=== PATIENT | female | born 1940 | race Caucasian/White ===

== ENCOUNTER → 2019-12-28 | Outpatient (CLI) | payer MEDICARE, BC | END | disposition home or self-care (01) | LOC: CVU 14:57 | PROVIDERS: ATTEND Internal Medicine Cardiovascular Disease | DX: I08.3 Combined rheumatic disorders of mitral, aortic and tricuspid valves (principal); I42.9 Cardiomyopathy, unspecified; I25.2 Old myocardial infarction; I50.9 Heart failure, unspecified | CPT/HCPCS: C8929; Q9957 ==

== ENCOUNTER 2020-02-06 01:44 | Inpatient (IN) | payer MEDICARE, BC ==
[~2020-02-06] VITALS: Ht 154.9 cm; Wt 92.0 kg
--- NOTE | 2020-02-06 01:46 | NUR ---
Sylvia Leung and BHANU,
[2020-02-06] MEDS ORDERED: PROPOFOL 100 ML IV ONE (01:53)
[2020-02-06] MEDS ORDERED: HEPARIN 25,000 UNITS/250ML PMX 250 ML ONE (02:09)
[2020-02-06] MEDS ORDERED: HEPARIN 5,000 UNITS/ML, 1ML ONE (02:09)
[2020-02-06 02:24] LABS: MEAN CORPUSCULAR HEMOGLOBIN 30.3 pg (27.0-34.8); MEAN CORPUSCULAR HGB CONC 33.6 g/dL (32.4-35.8); MEAN CORPUSCULAR VOLUME 90.3 fL (80-100); MEAN PLATELET VOLUME 8.7 fL (7.4-10.4); PLATELET COUNT 307 x10^3/uL (130-400); RED BLOOD COUNT 4.58 x10^6/uL (3.82-5.3); RED CELL DISTRIBUTION WIDTH 14.8 % (9.6-15.2)
--- NOTE | 2020-02-06 02:28 | NUR ---
MAI CHICAS STARTED AT THIS TIME. MD AT BEDSIDE FOR CENTRAL LINE PLACEMENT.
[2020-02-06 02:30] LABS: INTERNATIONAL NORMALIZED RATIO 1.02 (0.93-1.1); PROTHROMBIN TIME 10.8 Seconds (9.6-11.5)
[2020-02-06] MEDS ORDERED: PROPOFOL 100 ML IV PRN (02:30)
[2020-02-06] MEDS ORDERED: HEPARIN 25,000 UNITS/250ML PMX 250 ML IV PRN (02:30)
[2020-02-06] MEDS ORDERED: AMIODARONE 450 MG in DEXTROSE 5% 241 ML IV PRN (02:30)
[2020-02-06] MEDS ORDERED: NOREPINEPHRINE 8 MG in SODIUM CHLORIDE 0.9% 242 ML IV PRN (02:30)
[2020-02-06] MEDS ORDERED: HEPARIN 5,000 UNITS/ML, 1ML IV ONE (02:30)
[2020-02-06 02:31] LABS: ALANINE AMINOTRANSFERASE 124 U/L (12-78); ALBUMIN 3.3 g/dL (3.4-5.0); ANION GAP 11 mmol/L (5-15); CALCIUM 8.2 mg/dL (8.5-10.1); CHLORIDE 109 mmol/L (98-107); CREATININE 1.26 mg/dL (0.55-1.02)
[2020-02-06 02:35] LABS: ALKALINE PHOSPHATASE 129 U/L (45-117); BILIRUBIN,TOTAL 0.7 mg/dL (0.2-1.0); TOTAL PROTEIN 6.8 g/dL (6.4-8.2)
--- NOTE | 2020-02-06 02:36 | NUR ---
PT WAS BIB [facility] D/O CARDIAC ARREST AT HOME WITH DAUGHTER PRESENT, DAUGHTER IS AN RN CPR STARTED WITH RETURN OF PULSES AFTER EPI X 3 AND SHOCK X 3 , PT INTUBATED ETT 7.5 40% FIO2, PEEP 5. TV 400, RR 17, 24 AT LIP
[2020-02-06 02:37] LABS: TROPONIN I 0.275 ng/mL (0.000-0.045)
[2020-02-06 02:46] LABS: BASOPHILS # (AUTO) 0.04 x10^3/uL (0-0.1); BASOPHILS % (AUTO) 0 % (0-1); EOSINOPHILS # (AUTO) 0.02 x10^3/uL (0-0.4); EOSINOPHILS % (AUTO) 0 % (1-7); LYMPHOCYTES # (AUTO) 2.91 x10^3/uL (1-3.4); LYMPHOCYTES % (AUTO) 14 % (22-44); MD SCAN; MONOCYTES # (AUTO) 1.89 x10^3/uL (0.2-0.8); MONOCYTES % (AUTO) 9 % (2-9); NEUTROPHILS # (AUTO) 16.23 x10^3/uL (1.8-6.8); NEUTROPHILS % (AUTO) 77 % (42-75)
[2020-02-06 02:52] VITALS: BP 130/68
--- NOTE | 2020-02-06 03:12 | NUR ---
NAD AT THIS TIME, TOLERATING ALL INTERVENTIONS VSS
--- NOTE | 2020-02-06 03:45 | NUR ---
DR ENGEL AT AND PLACED ART LINE TO RIGHT GROIN, AWAITING ADMIT ORDERS
[2020-02-06] MEDS ORDERED: SODIUM PHOSPHATE 20 MMOL in SODIUM CHLORIDE 0.9% 250 ML IVPB PRN (03:51)
[2020-02-06] MEDS ORDERED: MAGNESIUM SULFATE/D5W 100 ML IVPB PRN (04:00)
[2020-02-06] MEDS ORDERED: FAMOTIDINE 20 MG/2 ML IVPush SCH (04:00)
[2020-02-06] MEDS ORDERED: ARTIFICIAL TEARS OINT 3.5 GM EACHEYE SCH (04:00)
[2020-02-06] MEDS ORDERED: CALCIUM CHLORIDE 13.6 MEQ in SODIUM CHLORIDE 0.9% 100 ML IVPB PRN (04:00)
--- NOTE | 2020-02-06 04:26 | NUR ---
REPORT TO JOSE GUADALUPE PT TO ICU WITH THIS RN RT AND TECH, PT IN NAD
[2020-02-06] MEDS ORDERED: SODIUM CHLORIDE 0.9% 1,000ML IVBOLUS ONE (04:30)
[2020-02-06] MEDS: AMPICILLIN/SULBACTAM 3 GM in SODIUM CHLORIDE 0.9% 100 ML IV SCH ×4 (05:05→22:08)
[2020-02-06] MEDS: BUSPIRONE 10 MG TABLET NG SCH ×3 (05:07→20:20)
[2020-02-06] MEDS: NOREPINEPHRINE 8 MG in SODIUM CHLORIDE 0.9% 242 ML IV PRN ×3 (05:08→18:22)
[2020-02-06] MEDS ORDERED: REGULAR INSULIN 100 UNITS in SODIUM CHLORIDE 0.9% 99 ML IV PRN (05:30)
[2020-02-06] MEDS: VASOPRESSIN 20 UNIT in SODIUM CHLORIDE 0.9% 99 ML IV PRN (06:42)
[2020-02-06 06:44] LABS: ANION GAP 12 mmol/L (5-15); CALCIUM 8.1 mg/dL (8.5-10.1); CHLORIDE 110 mmol/L (98-107); CREATININE 1.09 mg/dL (0.55-1.02)
[2020-02-06] MEDS: KSCALE TO 4.0 IV SCH ×4 (07:00→22:00)
[2020-02-06] MEDS ORDERED: POTASSIUM CHLORIDE PMX 100 ML IV ONE ×5 (07:00→22:30)
[2020-02-06] MEDS ORDERED: VECURONIUM 10 MG IVPush ONE ×2 (08:30→15:00)
[2020-02-06] MEDS ORDERED: ATROPINE SYRINGE 0.1 MG/ML, 10ML ONE (08:54)
[2020-02-06] MEDS ORDERED: ATROPINE SYRINGE 0.1 MG/ML, 10ML IVPush ONE (09:00)
[2020-02-06] MEDS: PROPOFOL 100 ML IV PRN ×3 (09:22→18:22)
[2020-02-06 09:36] LABS: FIO2 60 %
[2020-02-06] MEDS ORDERED: EPINEPHRINE 5 MG in SODIUM CHLORIDE 0.9% 245 ML IV PRN (10:30)
[2020-02-06] MEDS: LEVOTHYROXINE 100 MCG INJ IVPush SCH (11:01)
[2020-02-06] MEDS: FENTANYL PF 1,000 MCG in SODIUM CHLORIDE 0.9% 80 ML IV PRN (11:07)
[2020-02-06] MEDS: ARTIFICIAL TEARS OINT 3.5 GM EACHEYE SCH ×2 (12:51→20:20)
[2020-02-06] MEDS ORDERED: SODIUM BICARBONATE 1 MEQ/ML, 50ML VIAL IVPush ONE (15:00)
[2020-02-06] MEDS ORDERED: AMIO400T5 PO (17:23)
[2020-02-06] MEDS ORDERED: ASPI-496 PO (17:23)
[2020-02-06] MEDS ORDERED: SPIR25TA5 PO (17:23)
[2020-02-06] MEDS ORDERED: METO25TA35 PO (17:23)
[2020-02-06] MEDS ORDERED: ATOR20TA PO (17:23)
[2020-02-06] MEDS ORDERED: LEVO112T2 PO (17:23)
[2020-02-06] MEDS ORDERED: LISI2.5T PO (17:23)
[2020-02-06] MEDS ORDERED: FURO20TA3 PO (17:23)
[2020-02-06] MEDS ORDERED: MAGNESIUM SULFATE 1 GM in SODIUM CHLORIDE 0.9% 50 ML IV ONE (19:00)
[2020-02-07] MEDS: PROPOFOL 100 ML IV PRN ×7 (00:18→21:43)
[2020-02-07] MEDS: NOREPINEPHRINE 8 MG in SODIUM CHLORIDE 0.9% 242 ML IV PRN ×2 (00:18→05:26)
[2020-02-07] MEDS: KSCALE TO 4.0 IV SCH ×6 (02:00→22:00)
[2020-02-07] MEDS ORDERED: POTASSIUM CHLORIDE PMX 100 ML IV ONE (02:30)
[2020-02-07] MEDS: ARTIFICIAL TEARS OINT 3.5 GM EACHEYE SCH ×3 (04:32→20:33)
[2020-02-07] MEDS: AMPICILLIN/SULBACTAM 3 GM in SODIUM CHLORIDE 0.9% 100 ML IV SCH ×4 (04:32→22:08)
[2020-02-07] MEDS: BUSPIRONE 10 MG TABLET NG SCH ×3 (04:32→20:33)
[2020-02-07 04:47] LABS: BASOPHILS # (AUTO) 0.01 x10^3/uL (0-0.1); BASOPHILS % (AUTO) 0 % (0-1); EOSINOPHILS % (AUTO) 0 % (1-7); LYMPHOCYTES # (AUTO) 1.22 x10^3/uL (1-3.4); LYMPHOCYTES % (AUTO) 9 % (22-44); MD NO; MEAN CORPUSCULAR HEMOGLOBIN 29.9 pg (27.0-34.8); MEAN CORPUSCULAR VOLUME 90.7 fL (80-100); MEAN PLATELET VOLUME 8.7 fL (7.4-10.4); MONOCYTES # (AUTO) 0.59 x10^3/uL (0.2-0.8); MONOCYTES % (AUTO) 5 % (2-9); NEUTROPHILS # (AUTO) 11.39 x10^3/uL (1.8-6.8); NEUTROPHILS % (AUTO) 86 % (42-75); PLATELET COUNT 257 x10^3/uL (130-400); RED BLOOD COUNT 4.56 x10^6/uL (3.82-5.3)
[2020-02-07 04:59] LABS: ALANINE AMINOTRANSFERASE 93 U/L (12-78); ALBUMIN 2.7 g/dL (3.4-5.0); ANION GAP 8 mmol/L (5-15); CHLORIDE 115 mmol/L (98-107); CREATININE 0.63 mg/dL (0.55-1.02)
[2020-02-07 05:01] LABS: ALKALINE PHOSPHATASE 83 U/L (45-117); BILIRUBIN,TOTAL 0.7 mg/dL (0.2-1.0)
[2020-02-07] MEDS: FAMOTIDINE 20 MG/2 ML IVPush SCH (05:12)
[2020-02-07] MEDS: FENTANYL PF 1,000 MCG in SODIUM CHLORIDE 0.9% 80 ML IV PRN (05:14)
[2020-02-07] MEDS: LEVOTHYROXINE 100 MCG INJ IVPush SCH (08:02)
[2020-02-07] MEDS ORDERED: NOREPINEPHRINE 1 MG/ML, 4ML ONE (13:16)
[2020-02-07] MEDS: NOREPINEPHRINE 32 MG in SODIUM CHLORIDE 0.9% 218 ML IV PRN ×2 (13:37→20:34)
[2020-02-07] MEDS ORDERED: SODIUM CHLORIDE 0.9% 1,000 ML IV SCH ×2 (16:00→16:30)
[2020-02-07] MEDS: VASOPRESSIN 20 UNIT in SODIUM CHLORIDE 0.9% 99 ML IV PRN ×2 (16:27→23:05)
[2020-02-07] MEDS ORDERED: SODIUM BICARBONATE 1 MEQ/ML, 50ML VIAL ONE (21:07)
[2020-02-07] MEDS ORDERED: SODIUM BICARB 8.4%, 50ML SYRINGE ONE (21:07)
[2020-02-07] MEDS ORDERED: SODIUM BICARB 8.4%, 50ML SYRINGE IVPush ONE (21:30)
[2020-02-08] MEDS ORDERED: SODIUM POLYSTYRENE SULFONATE ORAL SUSP NG ONE
[2020-02-08] MEDS ORDERED: SODIUM BICARB 8.4%, 50ML SYRINGE IVPush ONE
[2020-02-08] MEDS ORDERED: SODIUM BICARBONATE 8.4% 150 MEQ in DEXTROSE 5% 1,000 ML IV SCH
[2020-02-08] MEDS: PROPOFOL 100 ML IV PRN ×2 (01:28→06:11)
[2020-02-08] MEDS: FENTANYL PF 1,000 MCG in SODIUM CHLORIDE 0.9% 80 ML IV PRN (01:47)
[2020-02-08] MEDS: KSCALE TO 4.0 IV SCH ×2 (02:00→06:00)
[2020-02-08 02:19] LABS: ANION GAP 19 mmol/L (5-15); CALCIUM 6.8 mg/dL (8.5-10.1); CHLORIDE 113 mmol/L (98-107); CREATININE 1.46 mg/dL (0.55-1.02)
[2020-02-08] MEDS: NOREPINEPHRINE 32 MG in SODIUM CHLORIDE 0.9% 218 ML IV PRN (03:41)
[2020-02-08] MEDS: EPINEPHRINE 5 MG in SODIUM CHLORIDE 0.9% 245 ML IV PRN ×2 (03:43→05:35)
[2020-02-08] MEDS: AMPICILLIN/SULBACTAM 3 GM in SODIUM CHLORIDE 0.9% 100 ML IV SCH (04:23)
[2020-02-08] MEDS: BUSPIRONE 10 MG TABLET NG SCH (04:23)
[2020-02-08] MEDS: FAMOTIDINE 20 MG/2 ML IVPush SCH (04:23)
[2020-02-08] MEDS: ARTIFICIAL TEARS OINT 3.5 GM EACHEYE SCH (04:24)
[2020-02-08] MEDS ORDERED: ONDANSETRON 2MG/ML, 2ML IVPush PRN (07:00)
[2020-02-08] MEDS ORDERED: LORazepam 2 MG/ML, 1ML IV ONE (07:00)
[2020-02-08] MEDS ORDERED: LORazepam 2 MG/ML, 1ML IVPush PRN (07:00)
[2020-02-08] MEDS ORDERED: MORPHINE SULFATE 4 MG/ML, 1ML IV ONE (07:00)
[2020-02-08] MEDS ORDERED: MORPHINE SULFATE 4 MG/ML, 1ML IVPush PRN (07:00)
== END 2020-02-08 07:30 | disposition expired | DRG 208 ==
LOC: ED 01:52 → EDIP 03:23 → CCU 04:18
PROVIDERS: ADMIT Internal Medicine; ATTEND Internal Medicine
PROC: 5A1945Z Respiratory Ventilation, 24-96 Consecutive Hours (ICD-10-PCS; principal; 2020-02-06)
PROC: 02HV33Z Insertion of Infusion Device into Superior Vena Cava, Percutaneous Approach (ICD-10-PCS; 2020-02-06)
PROC: B548ZZA Ultrasonography of Superior Vena Cava, Guidance (ICD-10-PCS; 2020-02-06)
PROC: 03HY32Z Insertion of Monitoring Device into Upper Artery, Percutaneous Approach (ICD-10-PCS; 2020-02-06)
DX: J96.01 Acute respiratory failure with hypoxia (principal); J81.0 Acute pulmonary edema; K72.00 Acute and subacute hepatic failure without coma; I50.43 Acute on chronic combined systolic (congestive) and diastolic (congestive) heart failure; I13.0 Hypertensive heart and chronic kidney disease with heart failure and stage 1 through stage 4 chronic kidney disease, or unspecified chronic kidney disease; G93.40 Encephalopathy, unspecified; I24.9 Acute ischemic heart disease, unspecified; R57.0 Cardiogenic shock; D72.829 Elevated white blood cell count, unspecified; E03.9 Hypothyroidism, unspecified; E66.9 Obesity, unspecified; E78.5 Hyperlipidemia, unspecified; I25.2 Old myocardial infarction; I25.5 Ischemic cardiomyopathy; J44.9 Chronic obstructive pulmonary disease, unspecified; N18.9 Chronic kidney disease, unspecified; Z51.5 Encounter for palliative care; Z68.38 Body mass index [BMI] 38.0-38.9, adult
CPT/HCPCS: 36600; 71045; 80048; 80053; 82330; 82803; 82962; 83735; 83880; 84100; 84132; 84484; 85025; 85520; 85610; 85730; 87070; 87081; 87205; 93005; 94002; 94003; 96374; 96375; G0378; J0171; J0295; J0461; J1644; J2704; J3010; J3475; J3480; J7060; J7070; J0282; J2060; J2270; J3490; J7030; J7050